=== PATIENT | male | born 1945 | race Caucasian/White ===

== ENCOUNTER 2024-12-29 22:19 | Emergency (ER) | payer OTHER, MEDICARE ==
[~2024-12-29] VITALS: Ht 177.8 cm; Wt 78.0 kg
[~2024-12-29 22:19] MED LIST: AMLO5TAB PO; ASPI-845 PO; ATOR40TA71 PO; CETI10TA19 PO; DOCU100C40 PO; DOXE75CA3 PO; LISI10TA27 PO; METH-360 PO; METO50TA17 PO; MULT-1085 PO; OMEG-79 PO; RIVA15TA PO
--- NOTE | 2024-12-29 22:34 | Physician Documentation ---
History of Present Illness ~ General Chief Complaint: Multiple Medical Complaints Stated Complaint: GI BLEED Time Seen by MD: 22:26 Primary Medical Doctor: [facility] Dr. Dick King History of Present Illness Initial Comments Patient presents to the emergency room with concerns for bright red blood per rectum. He says he went onto the toilet tonight and feels that he may have had a bowel movement with significant amount of red blood. Denies black stools. Does endorse some degree of abdominal discomfort. She states this is chronic in nature. He is not on blood thinners Medication Reconciliation Allergies: Coded Allergies: No Known Allergies (Unverified , 12/29/24) Scheduled Amlodipine Besylate (Amlodipine Besylate), 1 TABLET PO DAILY, (Reported) Atorvastatin Calcium (Atorvastatin Calcium), 1 TAB PO DAILY, (Reported) Cetirizine HCl (Cetirizine HCl), 1 TAB PO HS, (Reported) Doxepin HCl (Doxepin HCl), 1 CAP PO HS, (Reported) Lisinopril (Lisinopril), 10 MG PO DAILY, (Reported) Methocarbamol (Robaxin-750), 1 TAB PO Q12H, (Reported) Metoprolol Tartrate* (Metoprolol Tartrate*), 1 TAB PO Q12H, (Reported) Multivitamin (Multi Vitamin Daily), 1 TAB PO DAILY, (Reported) Discontinued Medications Aspirin (Aspirin EC), 1 TABLET PO DAILY, (Reported) Discontinued Reason: patient no longer taking Docusate Sodium (Docusate Sodium), 1 CAP PO Q12H, (Reported) Discontinued Reason: patient no longer taking Mead-3 Fatty Acids/Fish Oil (Fish Oil 1,000 Mg Softgel), 1 CAP PO DAILY, (Reported) Discontinued Reason: patient no longer taking Rivaroxaban (Xarelto), 15 MG PO BIDBD Discontinued Reason: patient no longer taking Past Medical History Past Medical History: Constipation, Hemorrhoids Past Surgical History: noncontributory Alcohol Use: Occasionally Drug Use: methamphetamine Lives with: Alone Lives In: Home Review of Systems ROS All review of systems negative except as per HPI Physical Exam Physical Exam Vital Signs: Temperature: 98.1, Heart Rate: 91, Respiratory Rate: 14, BP: 109/51, Pulse Oximetry: 95, Weight: 78.000 Physical Exam General: Patient is awake, alert, oriented x4 in no acute distress. Pressured speech Head: Normocephalic and atraumatic. Eyes: Conjunctival normal. EOMI. PERRL. ENT: Mucous membranes moist. Neck: Supple, trachea is midline. Chest: Clear to auscultation bilaterally without rales, rhonchi, or wheezes. There is no accessory muscle use or retractions. Cardiac: RRR without murmurs, gallops, or rubs. Abd: Soft, nondistended, nontender, with normoactive bowel sounds. No guarding, rebound, or rigidity. Progress Progress Note Time 11:35 p.m.: Received medical alert that patient's hemoglobin is emergently low. We are arranging for transfer. Patient just had a bowel movement in his nearly hold blood. Discuss the case with our surgeon who recommends transfer as we do not have GI available or Interventional Radiology for embolization. Results/Orders Results/Orders Orders - BRENT BOYKIN MD Type And Screen (12/29/24 22:32) Nothing By Mouth (12/30/24 Breakfast) Monitor (12/29/24 22:32) Saline Lock (12/29/24 22:32) Lrpc - Active Bleeding (12/29/24 23:15) Chest,Single View (12/29/24 23:28) Fill Out Med Reconciliation (12/29/24 23:17) Keep Ahead ___Units (12/29/24 23:28) Lrpc - Active Bleeding (12/29/24 22:41) Lrpc - Active Bleeding (12/29/24 22:41) Completed Orders - BRENT BOYKIN MD Cbc/Diff (12/29/24 22:32) BMP (12/29/24 22:32) PTT (12/29/24 22:32) Pt Inr (12/29/24 22:32) Urinalysis, Cult If Indicated (12/29/24 22:32) Drug Screen, Urine (12/29/24 22:32) Pantoprazole 40mg Iv (Protonix 40mg Iv) (12/29/24 23:15) Electrocardiogram (12/29/24 23:16) Chest,Single View (12/29/24 23:28) Tranexamic Acid Inj. (Cyklokapron Inj.) (12/29/24 23:30) Normal Saline 1000ml (0.9% Sodium Chlori (12/30/24 01:25) Cbc/Diff (12/30/24 03:18) Medications Received in ER Medications (Trade) Dose Ordered Sig/Daren Route PRN Reason Start Time Stop Time Status Last Admin Dose Admin (Protonix 40mg IV) 80 mg ONCE ONCE IV 12/29/24 23:15 12/29/24 23:17 DC 12/29/24 23:58 80 MG (Cyklokapron inj.) 1,000 mg ONCE ONCE IV 12/29/24 23:30 12/29/24 23:31 DC 12/29/24 23:55 1,000 MG Sodium Chloride 1,000 ml @ 1,000 mls/hr ONCE ONCE IV 12/30/24 01:25 12/30/24 02:24 DC 12/30/24 01:43 1,000 MLS/HR Vital Signs 12/29/24 12/29/24 12/29/24 12/30/24 22:24 23:04 23:48 00:05 Temp 98.1 99.2 99.1 Pulse 91 88 92 Resp 15 15 18 B/P (MAP) 109/51 98/54 (69) Pulse Ox 95 94 12/30/24 12/30/24 12/30/24 12/30/24 00:39 01:39 01:46 01:54 Temp 99.0 98.3 99.1 Pulse 91 77 88 82 Resp 19 15 18 B/P (MAP) 99/41 (60) 120/49 127/53 (77) 112/46 Pulse Ox 97 97 O2 Flow Rate 1.0 1.0 12/30/24 12/30/24 12/30/24 12/30/24 02:21 02:25 03:08 03:25 Temp 99.0 99.4 Pulse 82 93 95 96 Resp 12 18 14 18 B/P (MAP) 133/54 (80) 110/49 124/58 (80) 131/46 Pulse Ox 98 97 O2 Flow Rate 1.0 12/30/24 12/30/24 12/30/24 04:31 04:37 04:45 Temp 99.4 99.4 99.2 Pulse 99 96 93 Resp 18 18 21 B/P (MAP) 146/53 146/53 (84) 120/50 Pulse Ox 96 Laboratory Tests Test 12/29/24 22:41 12/30/24 02:55 12/30/24 03:44 White Blood Count 10.2 9.3 Red Blood Count 2.18 L 2.54 L Hemoglobin 6.2 *L 7.4 L Hematocrit 19.3 *L 22.7 L Mean Corpuscular Volume 88.5 89.3 Mean Corpuscular Hemoglobin 28.5 28.9 Mean Corpuscular Hemoglobin Concent 32.2 L 32.4 L Red Cell Distribution Width 20.3 H 17.6 H Platelet Count 379 309 Mean Platelet Volume 7.3 L 7.8 Neutrophils (%) (Auto) 77.9 H 72.6 Lymphocytes (%) (Auto) 9.2 L 17.3 L Monocytes (%) (Auto) 10.3 9.3 Eosinophils (%) (Auto) 2.3 0.5 Basophils (%) (Auto) 0.3 0.3 Neutrophils # (Auto) 7.9 H 6.8 Lymphocytes # (Auto) 0.9 L 1.6 Monocytes # (Auto) 1.0 H 0.9 Eosinophils # (Auto) 0.2 0.1 Basophils # (Auto) 0.0 0.0 CBC Comment Platelet Estimate Normal Red Blood Cell Morphology Perf Hypochromasia 2+ Basophilic Stippling Anisocytosis 2+ Target Cells Few Elliptocytes Few Prothrombin Time 10.9 INR International Normalized Ratio 1.1 Activated Partial Thromboplast Time 26 Coagulation Comments Sodium Level 138 Potassium Level 4.5 Chloride Level 105 Carbon Dioxide Level 25.5 Anion Gap 8 Blood Urea Nitrogen 26 H Creatinine 1.20 H Estimated GFR/1.73 m2 59 BUN/Creatinine Ratio 21.7 H Glucose Level 145 H Calcium Level 7.9 L Albumin 2.4 L Chemistry Comments Urine Specimen Description Urinal Urine Color Yellow Urine Clarity Clear Urine pH 6.0 Urine Specific [place] 1.020 Urine Protein Negative Urine Glucose (UA) Negative Urine Ketones Negative Urine Occult Blood Negative Urine Nitrite Negative Urine Bilirubin Negative Urine Urobilinogen 0.2 Urine Leukocyte Esterase Negative Urine Culture Indicated Not ind Volume Urine Centrifuged 10 ml Urine Comment Urine Opiates Screen Positive Urine Methadone Screen Negative Urine Fentanyl Screen Negative Urine Barbiturates Screen Negative Urine Phencyclidine Screen Negative Urine Amphetamines Screen Negative Urine Benzodiazepines Screen Negative Urine Cocaine Screen Negative Urine Cannabinoids Screen Positive Drug Screen Comment Medical Decision Making Findings Patient presented to the emergency room with red blood per rectum. Di fferentials include but are not limited to upper GI bleed, lower GI bleed, anemia, blood describe lysis, diverticular bleed therefore emergent labs ordered. Labs show with significant anemia and in the light of significant bleeding transfused and has been implemented. Patient continued to have bleeding in the emergency room in his concerned that he had bleed out however we have no Interventional Radiology or utilization review nurse at our facility at this time. Consulted with surgery who felt the patient may require embolization therefore the need to transfer. Departure Disposition: 51 HOSPICE/MEDICAL FACILITY Impression: Primary Impression: GI bleed Additional Impression: Anemia Condition: Critical Referrals: NO PRIMARY CARE PROVIDER (PCP) Critical Care Note Total Time (mins): 78 Critical Care Note The very real possibility of a deterioration of this patient's condition required the highest level of my preparedness for sudden, emergent intervention. I provided critical care services, which included medication orders, frequent reevaluations of the patient's condition and response to treatment, ordering and reviewing test results, and discussing the case with various consultants. E xcludes time spent performing separately billable procedures. The critical care time associated with the care of the patient was 78 minutes not counting procedures Signature Scribe Signature: No scribe Attestation: The note accurately reflects work and decisions made by me.Brent Boykin MD 12/30/24 05:11 BERNT BOYKIN MD Dec 29, 2024 22:34
[2024-12-29 22:49] LABS: MEAN PLATELET VOLUME 7.3 FL (7.4-10.4); RED CELL DISTRIBUTION WIDTH 20.3 % (11.5-14.5)
[2024-12-29 22:57] LABS: CREATININE 1.20 MG/DL (0.60-1.10); TOTAL CARBON DIOXIDE 25.5 MMOL/L (24-32); eCRCL 52 ML/MIN; eGFR 59 ML/MIN
[2024-12-29 23:01] LABS: APTT 26 SECONDS (22-32); INR 1.1 INR
--- NOTE | 2024-12-29 23:31 | ELECTROCARDIOGRAPH REPORT ---
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
--- NOTE | 2024-12-29 23:43 | RADIOLOGY REPORT ---
CHEST RADIOGRAPH Indication: CP Technique: 1 view Comparison: CHEST,SINGLE VIEW on DOS: 04/16/20 FINDINGS: Lines and Tubes: None Lungs/Pleura: No focal consolidation, pleural effusion or pneumothorax. Similar hazy and linear opaci ties in the lung bases likely chronic scarring/ atelectasis. Cardiomediastinum: Normal heart size. Other: No acute osseous abnormality. IMPRESSION: 1. No acute cardiopulmonary abnormality or significant change from prior exam.
[2024-12-29 23:48] VITALS: PULSE 88; RESP 15; TEMP 99.2
[2024-12-29 23:55] LABS: ELLIPTOCYTES FEW; PLATELET ESTIMATE NORMAL
[2024-12-29] MEDS: tranexamic acid 100mg/ml inj. IV ONE (23:55)
[2024-12-30] VITALS (7 sets, daily range): BP systolic 104–146; BP diastolic 44–53; PULSE 77–99; RESP 18–22; TEMP 98.3–99.4; O2SAT 95
[2024-12-30] MEDS: normal saline 1000ml 1,000 ML IV ONE (01:43)
[2024-12-30 03:18] LABS: LEUKOCYTE ESTERASE ,URINE NEGATIVE (Neg); NITRITES, URINE NEGATIVE (Neg); OCCULT BLOOD,URINE NEGATIVE (Neg)
[2024-12-30 03:26] LABS: UA COLLECTION TYPE URINAL
[2024-12-30 03:27] LABS: URINE AMPHETAMINE SCREEN NEGATIVE (Neg); URINE BARBITUATE SCREEN NEGATIVE (Neg); URINE BENZODIAZEPINES SCREEN NEGATIVE (Neg); URINE CANNABINOID SCREEN POSITIVE (Neg); URINE COCAINE SCREEN NEGATIVE (Neg); URINE METHADONE SCREEN NEGATIVE (Neg); URINE OPIATE SCREEN POSITIVE (Neg); URINE PHENCYCLIDINE SCREEN NEGATIVE (Neg)
[2024-12-30 03:49] LABS: MEAN PLATELET VOLUME 7.8 FL (7.4-10.4); RED CELL DISTRIBUTION WIDTH 17.6 % (11.5-14.5)
== END 2024-12-30 05:27 | disposition hospice, inpatient (51) ==
LOC: ER 22:20
DX: K92.2 Gastrointestinal hemorrhage, unspecified (principal); D64.9 Anemia, unspecified; R07.9 Chest pain, unspecified; F15.90 Other stimulant use, unspecified, uncomplicated; Z87.19 Personal history of other diseases of the digestive system
CPT/HCPCS: 36415; 36430; 71045; 80048; 80305; 81003; 85025; 85610; 85730; 86885; 86900; 86901; 86920; 93005; 96365; 96366; 96375; 99291; 99292; J2470; J3490; J7030; J7050; P9016; 85008